=== PATIENT | male | born 1990 | race Caucasian/White ===

== ENCOUNTER 2022-01-10 13:34 | Emergency (ER) | payer OTHER ==
[~2022-01-10] VITALS: Ht 180.3 cm; Wt 136.0 kg
[~2022-01-10 13:34] MED LIST: GENTAMICIN15 ML/BTL OP
[2022-01-10 14:23] VITALS: BP 137/84
[2022-01-10] MEDS ORDERED: AMOXICILLIN500 MG PO (14:59)
== END 2022-01-10 15:26 | disposition home or self-care (01) | DRG 605 ==
LOC: ED 13:34
PROC: 0HQEXZZ Repair Left Lower Arm Skin, External Approach (ICD-10-PCS; principal; 2022-01-10)
DX: S51.812A Laceration without foreign body of left forearm, initial encounter (principal); W29.3XXA Contact with powered garden and outdoor hand tools and machinery, initial encounter; Y93.89 Activity, other specified; Y92.009 Unspecified place in unspecified non-institutional (private) residence as the place of occurrence of the external cause